=== PATIENT | male | born 1985 | race Hispanic/Latino ===

== ENCOUNTER 2024-08-28 21:25 | Emergency (ER) | payer OTHER, SELFPAY ==
[2024-08-28] MEDS ORDERED: diphenhydrAMINE 25 MG CAP ONE (23:30)
== END 2024-08-28 23:34 ==
LOC: ERS 21:25 → EEVIPCON 21:25 → ERS 23:34
DX: L29.9 Pruritus, unspecified (principal); F17.210 Nicotine dependence, cigarettes, uncomplicated; Z55.6 Problems related to health literacy
CPT/HCPCS: 99283